=== PATIENT | male | born 1950 | race Caucasian/White ===

== ENCOUNTER 2020-10-27 21:54 | Inpatient (IN) | payer MEDICARE ==
[2020-10-27] MEDS ORDERED: IPRATROPIUM-ALBUTEROL 3 ML NEB INHALATION STA (22:25)
[2020-10-27] MEDS ORDERED: SODIUM CHLORIDE 0.9% 1,000 ML IV STA (22:25)
--- NOTE | 2020-10-27 23:28 | XR ---
EXAMINATION TYPE: XR chest 2V DATE OF EXAM: 10/27/2020 COMPARISON: NONE HISTORY: Short of breath TECHNIQUE: 2 views FINDINGS: There is no heart failure. On the lateral view there is blunting of the costophrenic angles . There are sternal wires. There are chest leads. I see no definite pulmonary consolidation. There is probably some atelectasis left posterior lung base. IMPRESSION: Small posterior pleural effusions. No heart failure.
--- NOTE | 2020-10-28 00:46 | ED ---
SOB HPI - General Chief Complaint: Shortness of Breath Stated Complaint: SOB Time Seen by Provider: 10/27/20 21:56 Source: patient, EMS, RN notes reviewed, old records reviewed Mode of arrival: EMS Limitations: no limitations - History of Present Illness Initial Comments: This is a 70-year-old male presented by EMS for evaluation of shortness of breath. Patient is accepted in transfer patient for heart failure patient has no prior history of heart failure he does have history of coronary artery bypass grafting. Patient states he was doing some walking became significant short of breath is going to his mailbox and back. Continue to call EMS he thinks at some point he had a near syncopal versus a syncopal event currently is much improved without chest pain MD Complaint: shortness of breath, anxiety -: hour(s) Severity: severe Severity scale (1-10): 10 Consistency: constant Improves With: oxygen, rest Worsens With: lying flat, exertion, movement Known History Of: congestive heart failure Associated Symptoms: denies other symptoms Treatments Prior to Arrival: oxygen - Related Data Home Medications Medication Instructions Recorded Confirmed Aspirin EC [Ecotrin Low Dose] 81 mg PO DAILY 10/27/20 10/27/20 Carvedilol [Coreg] 25 mg PO BID 10/27/20 10/27/20 Famotidine [Pepcid] 20 mg PO BID 10/27/20 10/27/20 Insulin Aspart [NovoLOG Flexpen] See Protocol SQ AC-TID PRN 10/27/20 10/27/20 Insulin Glargine,Hum.rec.anlog 70 unit SQ HS 10/27/20 10/27/20 [Lantus Solostar] Lisinopril-Hctz 20-25 mg 1 tab PO HS 10/27/20 10/27/20 [Zestoretic 20-25] Simvastatin [Zocor] 40 mg PO HS 10/27/20 10/27/20 allopurinoL [Zyloprim] 100 mg PO DAILY 10/27/20 10/27/20 amLODIPine [Norvasc] 5 mg PO DAILY 10/27/20 10/27/20 guaiFENesin [Mucinex] 600 mg PO BID PRN 10/27/20 10/27/20 sitaGLIPtin PHOS/metFORMIN HCL 1 tab PO BID 10/27/20 10/27/20 [Janumet 50-1,000 mg Tablet] Allergies Allergy/AdvReac Type Severity Reaction Status Date / Time No Known Allergies Allergy Verified 10/27/20 23:05 Review of Systems ROS Statement: Those systems with pertinent positive or pertinent negative responses have been documented in the HPI. ROS Other: All systems not noted in ROS Statement are negative. Past Medical History Past Medical History: Diabetes Mellitus, Hypertension History of Any Multi-Drug Resistant Organisms: None Reported Past Surgical History: Coronary Bypass/CABG Past Psychological History: No Psychological Hx Reported Smoking Status: Former smoker Past Alcohol Use History: None Reported Past Drug Use History: None Reported General Exam Limitations: no limitations General appearance: alert, in no apparent distress, anxious Head exam: Present: atraumatic, normocephalic, normal inspection Eye exam: Present: normal appearance, PERRL, EOMI. Absent: scleral icterus, conjunctival injection, periorbital swelling ENT exam: Present: normal exam, mucous membranes moist Neck exam: Present: normal inspection. Absent: tenderness, meningismus, lymphadenopathy Respiratory exam: Present: rales, accessory muscle use, decreased breath sounds, prolonged expiratory. Absent: respiratory distress, wheezes, rhonchi, stridor Cardiovascular Exam: Present: regular rate, normal rhythm, normal heart sounds. Absent: systolic murmur, diastolic murmur, rubs, gallop, clicks GI/Abdominal exam: Present: soft, normal bowel sounds. Absent: distended, tenderness, guarding, rebound, rigid Extremities exam: Present: normal inspection, full ROM, normal capillary refill. Absent: tenderness, pedal edema, joint swelling, calf tenderness Back exam: Present: normal inspection Neurological exam: Present: alert, oriented X3, CN II-XII intact Psychiatric exam: Present: normal affect, normal mood Skin exam: Present: warm, dry, intact, normal color. Absent: rash Course Vital Signs 10/27/20 10/28/20 10/28/20 22:03 00:00 00:49 Temperature 98.7 F Pulse Rate 64 62 67 Respiratory 22 18 Rate Blood Pressure 140/75 122/67 O2 Sat by Pulse 100 93 L Oximetry 10/28/20 00:59 Temperature Pulse Rate 70 Respiratory Rate Blood Pressure O2 Sat by Pulse Oximetry - Reevaluation(s) Reevaluation #1: 10/28/20 01:15 Medical record is reviewed Reevaluation #2: 10/28/20 01:15 Transfer paperwork is also been reviewed Reevaluation #3: 10/28/20 01:15 Patient continues to feel improved on 2 L of nasal Reevaluation #4: 10/28/20 01:15 Patient informed of results questions are answered - Consultations Consultation #1: Spoke with Dr. Rodriguez he will admit this patient Medical Decision Making - Medical Decision Making 70 male who is accepted in transfer for CHF with hypoxia. Patient was originally and some breathing support with a nonrebreather on arrival. Was titrated down to 2 L of nasal cannula, breathing is improved will admit for continued diuresis and cardiology evaluation - EKG Data -: EKG Interpreted by Me (EKG shows nsr 65 IL 200 QRS 96 QTc 447) Disposition Clinical Impression: Congestive heart failure, Acute pulmonary edema, Hypoxia Disposition: ADMITTED IP TO THIS HOSP Condition: Serious Is patient prescribed a controlled substance at d/c from ED?: No Referrals: Jalen Haque MD [Primary Care Provider] - 1-2 days
[2020-10-28] MEDS ORDERED: IPRATROPIUM-ALBUTEROL 3 ML NEB INHALATION PRN ×2 (01:11→11:50)
[2020-10-28] MEDS: FUROSEMIDE 10 MG/ML 4 ML VIAL IV SCH ×2 (02:00→18:16)
[2020-10-28 02:48] LABS: Glucose,Whole Blood 244 mg/dL (75-99)
[2020-10-28] MEDS: INSULIN ASPART (NovoLOG) 100 UNIT/ML VIAL SQ SCH ×5 (04:03→20:57)
[2020-10-28 06:03] LABS: HCT 40.9 % (39.0-53.0); HGB 13.1 gm/dL (13.0-17.5); MCH 31.4 pg (25.0-35.0); MCHC 32.1 g/dL (31.0-37.0); MCV 97.7 fL (80.0-100.0); Mean Platelet Volume 8.9; Platelet Count 234 k/uL (150-450); RBC 4.19 m/uL (4.30-5.90); RDW 14.1 % (11.5-15.5); WBC 9.2 k/uL (3.8-10.6)
[2020-10-28 06:20] LABS: Glucose,Whole Blood 224 mg/dL (75-99)
[2020-10-28 06:25] LABS: Calcium 8.5 mg/dL (8.4-10.2); Potassium 4.7 mmol/L (3.5-5.1)
[2020-10-28] MEDS ORDERED: guaiFENesin 600 MG TABLET.ER PO PRN (07:02)
[2020-10-28] MEDS: metFORMIN 500 MG TAB PO SCH ×2 (07:15→18:20)
[2020-10-28] MEDS: carvediloL 12.5 MG TAB PO SCH ×2 (07:15→18:16)
[2020-10-28] MEDS ORDERED: FAMOTIDINE 20 MG TAB PO SCH (09:00)
[2020-10-28] MEDS ORDERED: HEPARIN SODIUM 1,000 UN/ML (10ML VL) IV ONE (09:08)
--- NOTE | 2020-10-28 09:49 | HP ---
HISTORY AND PHYSICAL 70-year-old white male, shortness of breath, ( ) for heart failure as he has had no recent history of heart failure, but he does have a history of bypass. He became significantly short of breath. He has positive troponins. Cardiology is consulted. He is short of breath laying flatter or with any exertion. HOME MEDICATIONS: Include aspirin, Coreg, Pepcid, NovoLog, Lantus, lisinopril, hydrochlorothiazide, Zocor, zyloprim, Norvasc, Mucinex and Janumet. ALLERGIES: None. REVIEW OF SYSTEMS: 14 point review of systems negative. PAST MEDICAL HISTORY: Hypertension, diabetes mellitus, history of bypass, former smoker. No alcohol. No drugs. PHYSICAL EXAMINATION: Blood pressure 122-140/60 to 70s, temp 98.7 respiratory 64-62, O2 is 92-100. RESPIRATORY: Clear. CARDIOVASCULAR: S1, S2. GI: Soft. PSYCH: Fair mood and affect. NEUROLOGIC: Alert and oriented x3. Looks his stated age. Pupils equal, round, reactive. ASSESSMENT: 1. Congestive heart failure. 2. Hypoxemia, non-rebreather on arrival. 3. Elevated troponin. Will get cardiology and Pulmonary involved for acute pulmonary edema, CHF, hypoxemia and elevated troponins, possible IN. Please see further orders. MMODL / IJN: [id number] /
[2020-10-28] MEDS: amLODIPine 5 MG TAB PO SCH (09:52)
[2020-10-28] MEDS: ASPIRIN 81 MG PO SCH (09:52)
[2020-10-28] MEDS: allopurinoL 100 MG TAB PO SCH (09:52)
[2020-10-28] MEDS: LINAGLIPTIN 5 MG TABLET PO SCH (09:52)
[2020-10-28 10:10] LABS: Prothrombin Time 10.6 sec (9.0-12.0)
--- NOTE | 2020-10-28 10:47 | ECHOF ---
Referral Reason:Heart Failure MEASUREMENTS -------- HEIGHT: 177.8 cm WEIGHT: 124.7 kg BP: 163/73 RVIDd: 4.3 cm (< 3.3) IVSd: 1.2 cm (0.6 - 1.1) LVIDd: 3.8 cm (3.9 - 5.3) LVPWd: 1.4 cm (0.6 - 1.1) IVSs: 1.3 cm LVIDs: 3.3 cm LVPWs: 1.0 cm LAESV Index (A-L): 26.15 ml/m Ao Diam: 3.6 cm (2.0 - 3.7) AV Cusp: 1.8 cm (1.5 - 2.6) LA Diam: 3.9 cm (2.7 - 3.8) MV E Drew: 1.09 m/s MV DecT: 219 ms MV A Drew: 0.62 m/s MV E/A Ratio: 1.75 RAP: 5.00 mmHg RVSP: 36.10 mmHg FINDINGS -------- This was a technically difficult study with suboptimal views. The left ventricular size is normal. There is mild concentric left ventricular hypertrophy. Overa ll left ventricular systolic function is moderate-severely impaired with, an EF between 30 - 35 %. Septal wall motion is delayed and consistent with prior cardiac surgery. Global hypokinesis Infer ior Hypokinesis The right ventricle is normal in size. Normal LA size by volume 22+/-6 ml/m2. The right atrium was not well visualized. 5.0mg of Lumason was utilized for enhancement of images Interatrial and interventricular septum intact. The aortic valve was not well visualized. There is no evidence of aortic regurgitation. There is no evidence of aortic stenosis. Mild mitral regurgitation is present. Yepc-ya-[id number] tricuspid regurgitation present. There is mild pulmonary hypertension. The right ventricular systolic pressure, as measured by Doppler, is 36.10mmHg. The pulmonic valve was not well visualized. The aortic root size is normal. IVC Not well visulized. There is no pericardial effusion. CONCLUSIONS -------- 1. The left ventricular size is normal. 2. There is mild concentric left ventricular hypertrophy. 3. Overall left ventricular systolic function is moderate-severely impaired with, an EF between 30 - 35 %. 4. Inferior Hypokinesis 5. Mild mitral regurgitation is present. 6. Ckmk-cp-dfvzytfw tricuspid regurgitation present. 7. There is mild pulmonary hypertension. 8. The right ventricular systolic pressure, as measured by Doppler, is 36.10mmHg. ROD PILER: Tiarra Nicholas RDCS
[2020-10-28] MEDS: HEPARIN SOD,PORK IN 0.45% NACL 25,000 UNIT in 0.45% NACL 1 250ML.BAG IV SCH (12:00)
[2020-10-28 12:02] LABS: Glucose,Whole Blood 236 mg/dL (75-99)
[2020-10-28] MEDS ORDERED: NITROGLYCERIN SL TABS 0.4 MG TAB SUBLINGUAL PRN (12:35)
[2020-10-28] MEDS ORDERED: ALPRAZolam 0.25 MG TAB PO PRN (12:35)
[2020-10-28] MEDS ORDERED: ALPRAZolam 0.5 MG TAB PO PRN (12:35)
--- NOTE | 2020-10-28 12:45 | P.CRDCN ---
History of Present Illness History of present illness: HISTORY OF PRESENTING ILLNESS This is a pleasant 70-year-old male past medical history significant for coronary artery disease status post CABG 5 in 2004 at [facility] in [place], type 2 diabetes, hypertension, dyslipidemia, obesity. He used to follow in the office with Dr. 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 We have been asked to see in consultation for congestive heart failure and elevated troponins. Yesterday patient was walking to his mailbox and started to feel short of breath, as he was walking back to his house shortness of breath worsened. He states that he did have a glass of iced tea, shortness of breath progressively worsened and he called EMS. He states that he did sit down in his recliner and felt that he may have passed out he does not remember EMS arriving her being brought to [facility]. At [place] patient's initial troponin was negative, his EKG revealed sinus rhythm with PACs, T-wave inversions in leads 1 aVL. His sodium was 137, potassium 4.6, BUN was 25, serum creatinine was 2.0, glucose 276 radiology read of his chest x- ray revealed pulmonary vascular congestion and bilateral lower lobe atelectasis versus infiltrate. Patient was transferred to [facility]. Patient denies any chest pain, palpitations, lower extremity edema, weakness or lightheadedness. He denies any nausea, diaphoresis. He denies symptoms of orthopnea or PND. He is a nonsmoker/never smoker. He denies alcohol use. Patient states he has not followed up with a matting press tender since 2017. DIAGNOSTICS EKG reveals sinus rhythm, heart 65, T wave inversions in leads I and aVL, no prior EKG to compare Most recent echocardiogram 09/2016 revealed an EF of 50%, aortic sclerosis, mild pulmonary hypertension History of stress test in 09/2016 showed distal anterior wall ischemia. It was recommended to undergo heart catheterization however this procedure was not completed for unknown reasons at this time. Telemetry tracings indicate sinus mechanism HR 50-60s Chest xray small posterior pleural effusions. Laboratory reviewed, Troponin trend (0.03 at [facility])--> 0.13, 0.16, WBC 9.2, hemoglobin 13.1, platelets 234, sodium 140, potassium 4.7, BUN 30, serum creatinine 1.6 REVIEW OF SYSTEMS At the time of my exam: CONSTITUTIONAL: Denies fever or chills. CARDIOVASCULAR: +shortness of breath, Denies chest pain, shortness of breath, orthopnea, PND or palpitations. RESPIRATORY: Denies cough. GASTROINTESTINAL: Denies abdominal pain, diarrhea, constipation, nausea or vomiting. MUSCULOSKELETAL: Denies myalgias. NEUROLOGIC: Denies numbness, tingling, headacbe or weakness. ENDOCRINE: Denies fatigue, weight change, polydipsia or polyurina. GENITOURINARY: Denies burning, hematuria or urgency with micturation. HEMATOLOGIC: Denies history of anemia or bleeding. PHYSICAL EXAMINATION Blood pressure 163/73, heart rate 67, afebrile, maintaining oxygen saturations 95% 2 L nasal cannula CONSTITUTIONAL: No apparent distress. HEENT: Head is normocephalic. Pupils are equal, round. Sclerae anicteric. Mucous membranes of the mouth are moist. No JVD. No carotid bruit. CHEST EXAMINATION: Lungs are diminished, mild crackles in the bases. No chest wall tenderness is noted on palpation or with deep breathing. HEART EXAMINATION: Regular rate and rhythm. S1, S2 heard. Systolic murmur noted ABDOMEN: Soft, nontender. Positive bowel sounds. EXTREMITIES: 2+ peripheral pulses, no lower extremity edema and no calf tenderness. SKIN: intact NEUROLOGIC EXAMINATION: Patient is awake, alert and oriented x3. ASSESSMENT Shortness of breath Elevated troponin concerning for ischemia Coronary artery disease status post CABG 5 in 2004 unknown details at this time Type 2 diabetes Hypertension Dyslipidemia Morbid Obesity Cardiomyopathy- most likely ischemic PLAN -Obtain 2D echocardiogram and doppler study to assess cardiac structure and function. - Echocardiogram revealed EF of 30-35%, inferior hypokinesis, mild mitral regurgitation, mild to moderate tricuspid regurgitation, mild pulmonary hypertension. -Lipid Panel -Will continue IV Lasix BID most likely transition to PO tomorrow -Start lisinopril 5mg BID -Continue patient's cardiac medications amlodipine 5 mg daily, aspirin 1 mg daily, atorvastatin 40 mg nightly, carvedilol 25 mg twice a day -Plan for cardiac catheterization with Dr. Noe tomorrow. -I have discussed the risks, benefits and alternative therapies for the above- mentioned procedure and for both sedation/analgesia as well as necessary blood product administration, if indicated, as they pertain to this patient. The patient has indicated understanding and acceptance of the risks and procedures discussed. Questions have been answered appropriately and he is agreeable to move forward with the above-stated procedure. Further recommendations based on clinical course Nurse Practitioner note has been reviewed, I agree with a documented findings and plan of care. Patient was seen and examined. Past Medical History Past Medical History: Diabetes Mellitus, Hypertension History of Any Multi-Drug Resistant Organisms: None Reported Past Surgical History: Coronary Bypass/CABG Additional Past Surgical History / Comment(s): Cataract surgery Additional Past Anesthesia/Blood Transfusion Reaction / Comment(s): Pt states "years ago I had a high tolerance for anesthesia" Past Psychological History: No Psychological Hx Reported Smoking Status: Former smoker Past Alcohol Use History: None Reported Past Drug Use History: None Reported - Past Family History Mother Family Medical History: CVA/TIA Additional Family Medical History / Comment(s): from stroke at age 56. Father Family Medical History: Cancer Additional Family Medical History / Comment(s): from cancer at age 97. Medications and Allergies Home Medications Medication Instructions Recorded Confirmed Type Aspirin EC [Ecotrin Low Dose] 81 mg PO DAILY 10/27/20 10/27/20 History Carvedilol [Coreg] 25 mg PO BID 10/27/20 10/27/20 History Famotidine [Pepcid] 20 mg PO BID 10/27/20 10/27/20 History Insulin Aspart [NovoLOG Flexpen] See Protocol SQ AC-TID PRN 10/27/20 10/27/20 History Insulin Glargine,Hum.rec.anlog 70 unit SQ HS 10/27/20 10/27/20 History [Lantus Solostar] Lisinopril-Hctz 20-25 mg 1 tab PO HS 10/27/20 10/27/20 History [Zestoretic 20-25] Simvastatin [Zocor] 40 mg PO HS 10/27/20 10/27/20 History allopurinoL [Zyloprim] 100 mg PO DAILY 10/27/20 10/27/20 History amLODIPine [Norvasc] 5 mg PO DAILY 10/27/20 10/27/20 History guaiFENesin [Mucinex] 600 mg PO BID PRN 10/27/20 10/27/20 History sitaGLIPtin PHOS/metFORMIN HCL 1 tab PO BID 10/27/20 10/27/20 History [Janumet 50-1,000 mg Tablet] Allergies Allergy/AdvReac Type Severity Reaction Status Date / Time No Known Allergies Allergy Verified 10/27/20 23:05 Physical Exam Vitals: Vital Signs Temp Pulse Pulse Resp BP BP Pulse Ox 10/28/20 04:00 98.3 F 67 18 163/73 95 10/28/20 01:37 98.1 F 67 18 123/69 94 L 10/28/20 00:59 70 10/28/20 00:49 67 10/28/20 00:00 62 18 122/67 93 L 10/27/20 22:03 98.7 F 64 22 140/75 100 Intake and Output 10/27/20 10/28/20 10/28/20 22:59 06:59 14:59 Intake Total 10 Output Total 1900 Balance -1890 Intake: IV 10 Invasive Line 1 10 Output: Urine 1900 Other: Voiding Method Indwelling Catheter Weight 124.738 kg 124.738 kg Results 10/28/20 05:14 10/28/20 05:14 Cardiac Enzymes 10/28/20 10/28/20 Range/Units 01:48 05:14 Troponin I 0.137 H* 0.160 H* (0.000-0.034) ng/mL CBC 10/28/20 Range/Units 05:14 WBC 9.2 (3.8-10.6) k/uL RBC 4.19 L (4.30-5.90) m/uL Hgb 13.1 (13.0-17.5) gm/dL Hct 40.9 (39.0-53.0) % Plt Count 234 (150-450) k/uL Comprehensive Metabolic Panel 10/28/20 Range/Units 05:14 Sodium 140 (137-145) mmol/L Potassium 4.7 (3.5-5.1) mmol/L Chloride 103 (98-107) mmol/L Carbon Dioxide 26 (22-30) mmol/L BUN 30 H (9-20) mg/dL Creatinine 1.66 H (0.66-1.25) mg/dL Glucose 244 H (74-99) mg/dL Calcium 8.5 (8.4-10.2) mg/dL Current Medications Generic Name Dose Route Start Last Admin Trade Name Freq PRN Reason Stop Dose Admin Albuterol/Ipratropium 3 ml 07/22/21 01:11 Ipratropium-Albuterol 3 Ml Neb INHALATION RT-QID PRN Shortness Of Breath Or Wheezing Allopurinol 100 mg 10/28/20 09:00 Allopurinol 100 Mg Tab PO DAILY [facility] Amlodipine Besylate 5 mg 10/28/20 09:00 Amlodipine 5 Mg Tab PO DAILY [facility] Aspirin 81 mg 10/28/20 09:00 Aspirin 81 Mg PO DAILY [facility] Atorvastatin Calcium 40 mg 10/28/20 21:00 Atorvastatin 40 Mg Tab PO HS [facility] Carvedilol 25 mg 10/28/20 07:30 10/28/20 07:15 Carvedilol 12.5 Mg Tab PO 25 mg AC-BID VIOLET Administration Famotidine 20 mg 10/28/20 09:00 Famotidine 20 Mg Tab PO BID [facility] Furosemide 40 mg 10/28/20 01:15 10/28/20 02:00 Furosemide 10 Mg/Ml 4 Ml Vial IV 40 mg Q12H VIOLET Administration Guaifenesin 600 mg 10/28/20 07:02 Guaifenesin 600 Mg Tablet.Er PO BID PRN Congestion Heparin Sodium (Porcine) 0 unit 10/28/20 09:08 Heparin Sodium 1,000 Un/Ml (10ml Vl) IV PER PROTOCOL PRN Low PTT Protocol Heparin Sodium/Sodium Chloride 250 mls @ 9.979 mls/hr 10/28/20 09:15 25,000 unit/ Sodium Chloride IV .Q24H VIOLET Protocol 8 UNITS/KG/HR Insulin Aspart 0 unit 10/28/20 03:15 10/28/20 06:30 Insulin Aspart (Novolog) 100 Unit/Ml Vial SQ 5 unit ACHS VIOLET Administration Protocol Insulin Detemir 70 unit 10/28/20 21:00 Insulin Detemir (Levemir) 100 Unit/Ml Syr SQ HS [facility] Linagliptin 5 mg 10/28/20 09:00 Linagliptin 5 Mg Tablet PO DAILY [facility] Lisinopril 5 mg 10/28/20 21:00 Lisinopril 5 Mg Tab PO BID [facility] Metformin HCl 1,000 mg 10/28/20 07:30 10/28/20 07:15 Metformin 500 Mg Tab PO 1,000 mg AC-BID VIOLET Administration Intake and Output 10/27/20 10/28/20 10/28/20 22:59 06:59 14:59 Intake Total 10 Output Total 1900 Balance -1889 Intake: IV 10 Invasive Line 1 10 Output: Urine 1899 Other: Voiding Method Indwelling Catheter Weight 124.738 kg 124.738 kg 10/28/20 05:14 10/28/20 05:14
--- NOTE | 2020-10-28 13:55 | P.CNPUL ---
History of Present Illness Consult date: 10/28/20 Requesting physician: Elmer Rodriguez Reason for consult: dyspnea, abnormal CXR/CT Chief complaint: shortness of breath History of present illness: this is a very pleasant 70-year-old gentleman who resides in [facility].appendectomy has a history of coronary artery disease with previous c oronary artery bypass grafting 4 in 2004, diabetes mellitus, hypertension, hyperlipidemia, gout. He is a former smoker of 27 years at 2 packs per day. He is on home oxygen at 2 L/m per nasal cannula for chronic obstructive pulmonary disease.he originally presented to [facility] for shortness of breath and dyspnea on exertion that started just 2 days prior. He was found to be in congestive heart failure and transferred here for further treatment. Chest x-ray does reveal evidence of some fluid volume overload with small bilateral pleural effusions. Some atelectatic changes and left posterior lung base. Echocardiogram does reveal moderate to severely impaired left ventricular sys tolic function with an ejection fraction 30-35%. Global hypokinesia.Troponin 0.160. White count 9.2. Hemoglobin 13.1. Sodium 140. Potassium 4.7. Creatinine 1.66. he's been initiated on IV diuretics. Heparin drip. Review of Systems REVIEW OF SYSTEMS: CONSTITUTIONAL: Denies any recent significant weight loss or weight gain. EYES: Denies change in vision. EARS, NOSE, MOUTH, THROAT: Denies headaches, denies sore throat. CARDIOVASCULAR: Denies chest pain, palpitations or syncopal episodes. RESPIRATORY: Positive for shortness of breath, no cough, congestion or hemo ptysis. GASTROINTESTINAL: Denies change in appetite, denies abdominal pain GENITOURINARY: Denies hematuria, denies infections. MUSKULOSKELETAL: Denies pain, denies swelling. INTEGUMENTARY: Denies rash, denies eczema. NEUROLOGICAL: Denies recent memory loss, no recent seizure activity. PSYCHIATRIC: Denies anxiety, denies depression. HEMATOLOGIC/LYMPHATIC: Denies anemia, denies enlarged lymph nodes. Past Medical History Past Medical History: Diabetes Mellitus, Hypertension History of Any Multi-Drug Resistant Organisms: None Reported Past Surgical History: Coronary Bypass/CABG Additional Past Surgical History / Comment(s): Cataract surgery Additional Past Anesthesia/Blood Transfusion Reaction / Comment(s): Pt states "years ago I had a high tolerance for anesthesia" Past Psychological History: No Psychological Hx Reported Smoking Status: Former smoker Past Alcohol Use History: None Reported Past Drug Use History: None Reported - Past Family History Mother Family Medical History: CVA/TIA Additional Family Medical History / Comment(s): from stroke at age 56. Father Family Medical History: Cancer Additional Family Medical History / Comment(s): from cancer at age 97. Medications and Allergies Home Medications Medication Instructions Recorded Confirmed Type Aspirin EC [Ecotrin Low Dose] 81 mg PO DAILY 10/27/20 10/27/20 History Carvedilol [Coreg] 25 mg PO BID 10/27/20 10/27/20 History Famotidine [Pepcid] 20 mg PO BID 10/27/20 10/27/20 History Insulin Aspart [NovoLOG Flexpen] See Protocol SQ AC-TID PRN 10/27/20 10/27/20 History Insulin Glargine,Hum.rec.anlog 70 unit SQ HS 10/27/20 10/27/20 History [Lantus Solostar] Lisinopril-Hctz 20-25 mg 1 tab PO HS 10/27/20 10/27/20 History [Zestoretic 20-25] Simvastatin [Zocor] 40 mg PO HS 10/27/20 10/27/20 History allopurinoL [Zyloprim] 100 mg PO DAILY 10/27/20 10/27/20 History amLODIPine [Norvasc] 5 mg PO DAILY 10/27/20 10/27/20 History guaiFENesin [Mucinex] 600 mg PO BID PRN 10/27/20 10/27/20 History sitaGLIPtin PHOS/metFORMIN HCL 1 tab PO BID 10/27/20 10/27/20 History [Janumet 50-1,000 mg Tablet] Allergies Allergy/AdvReac Type Severity Reaction Status Date / Time No Known Allergies Allergy Verified 10/27/20 23:05 Physical Exam Vitals: Vital Signs Temp Pulse Pulse Resp BP BP Pulse Ox 10/28/20 04:00 98.3 F 67 18 163/73 95 10/28/20 01:37 98.1 F 67 18 123/69 94 L 10/28/20 00:59 70 10/28/20 00:49 67 10/28/20 00:00 62 18 122/67 93 L 10/27/20 22:03 98.7 F 64 22 140/75 100 Intake and Output 10/27/20 10/28/20 10/28/20 22:59 06:59 14:59 Intake Total 10 Output Total 1900 450 Balance -1890 -450 Intake: IV 10 Invasive Line 1 10 Output: Urine 1900 450 Other: Voiding Method Indwelling Catheter Weight 124.738 kg 124.738 kg GENERAL EXAM: Alert, pleasant 70-year-old gentleman, on 2 L nasal cannula, comfortable in no apparent distress. HEAD: Normocephalic. EYES: Normal reaction of pupils, equal size. NOSE: Clear with pink turbinates. THROAT: No erythema or exudates. NECK: No masses, no JVD. CHEST: No chest wall deformity. LUNGS: Equal air entry with crackles in the posterior bases CVS: S1 and S2 normal with no audible murmur, regular rhythm. ABDOMEN: No hepatosplenomegaly, normal bowel sounds, no guarding or rigidity. SPINE: No scoliosis or deformity SKIN: No rashes CENTRAL NERVOUS SYSTEM: No focal deficits, tone is normal in all 4 extremities. EXTREMITIES: There is no peripheral edema. No clubbing, no cyanosis. Peripheral pulses are intact. Results - Laboratory Findings CBC and BMP: 10/28/20 05:14 10/28/20 05:14 PT/INR, D-dimer PT 10.6 sec (9.0-12.0) 10/28/20 09:35 INR 1.0 (<1.2) 10/28/20 09:35 Abnormal lab findings: Abnormal Labs 10/28/20 10/28/20 10/28/20 01:48 02:45 05:14 RBC BUN Creatinine Glucose POC Glucose (mg/dL) 244 H Troponin I 0.137 H* 0.160 H* 10/28/20 10/28/20 10/28/20 05:14 05:14 06:18 RBC 4.19 L BUN 30 H Creatinine 1.66 H Glucose 244 H POC Glucose (mg/dL) 224 H Troponin I 10/28/20 11:51 RBC BUN Creatinine Glucose POC Glucose (mg/dL) 236 H Troponin I - Diagnostic Findings Chest x-ray: image reviewed Assessment and Plan Assessment: 1 Acute exacerbation of systolic congestive heart failure, moderate to severely impaired left ventricular systolic function with ejection fraction 30-35% 2 History of coronary artery disease with previous coronary artery bypass grafting 4 in 2004 3 History of chronic tobacco dependence of 27 years at 2 packs per day 4 Chronic obstructive pulmonary disease 5 Diabetes mellitus 6 Hypertension 7 Hyperlipidemia 8 History of gout 9 Gastroesophageal reflux disease Plan: The patient was seen and evaluated by Dr. Jaquez Chest x-ray and labs reviewed Add DuoNeb inhalations Plan is for cardiac catheterization in a.m. We will continue to follow and make further recommendations based on his clinical status I, the cosigning physician, performed a history & physical examination of the patient. Lungs sounds with crackles in the posterior bases. Maintaining good O2 saturations in the 90s on 2 L/m per nasal cannula. I discussed the assessment and plan of care with my nurse practitioner, Liza Foley. I attest to the above consultation as dictated by her. Time with Patient: Greater than 30
[2020-10-28 14:52] VITALS: BMI 39.4
[2020-10-28] MEDS: IPRATROPIUM-ALBUTEROL 3 ML NEB INHALATION SCH ×3 (15:13→21:26)
[2020-10-28 17:05] LABS: Glucose,Whole Blood 243 mg/dL (75-99)
[2020-10-28] MEDS: HEPARIN SODIUM 1,000 UN/ML (10ML VL) IV PRN (20:01)
[2020-10-28 20:08] LABS: Glucose,Whole Blood 227 mg/dL (75-99)
[2020-10-28] MEDS: INSULIN DETEMIR (LEVEMIR) 100 UNIT/ML SYR SQ SCH (20:57)
[2020-10-28] MEDS: ATORVASTATIN 40 MG TAB PO SCH (20:57)
[2020-10-28] MEDS: lisinopriL 5 MG TAB PO SCH (20:57)
[2020-10-28] MEDS ORDERED: LISINOPRIL-HCTZ 20-25 MG 1 EACH TAB PO SCH (21:00)
[2020-10-28] MEDS ORDERED: ATORVASTATIN 20 MG TAB PO SCH (21:00)
[2020-10-29] MEDS ORDERED: SODIUM CHLORIDE 0.9% 1,000 ML in EMPTY BAG 1 BAG IV ONE
[2020-10-29] MEDS: FUROSEMIDE 10 MG/ML 4 ML VIAL IV SCH ×2 (00:27→12:15)
[2020-10-29 01:29] LABS: Chol/HDL Ratio 3.81; LDL Cholesterol,Calculated 40.4 mg/dL (0.0-131.0); VLDL Calculation 32.6 mg/dL (5.00-40.00)
[2020-10-29 03:10] LABS: Partial Thromboplastin Time 35.1 sec (22.0-30.0); Prothrombin Time 10.7 sec (9.0-12.0)
[2020-10-29 03:35] LABS: Basophils % (A) 0 %; Eosinophils # (A) 0.1 k/uL (0-0.7); Eosinophils % (A) 1 %; HCT 41.3 % (39.0-53.0); HGB 13.1 gm/dL (13.0-17.5); Lymphocytes # (A) 1.5 k/uL (1.0-4.8); Lymphocytes % (A) 19 %; MCH 30.8 pg (25.0-35.0); MCHC 31.7 g/dL (31.0-37.0); MCV 97.4 fL (80.0-100.0); Monocytes # (A) 0.3 k/uL (0-1.0); Monocytes % (A) 4 %; Neutrophils # (A) 6.1 k/uL (1.3-7.7); Neutrophils % (A) 75 %; Platelet Count 240 k/uL (150-450); RBC 4.23 m/uL (4.30-5.90); RDW 14.1 % (11.5-15.5); WBC 8.2 k/uL (3.8-10.6)
[2020-10-29] MEDS: HEPARIN SODIUM 1,000 UN/ML (10ML VL) IV PRN (03:41)
[2020-10-29 03:43] LABS: Calcium 8.9 mg/dL (8.4-10.2); Potassium 4.1 mmol/L (3.5-5.1)
[2020-10-29 05:58] LABS: Glucose,Whole Blood 180 mg/dL (75-99)
[2020-10-29] MEDS: LINAGLIPTIN 5 MG TABLET PO SCH (06:40)
[2020-10-29] MEDS: metFORMIN 500 MG TAB PO SCH (06:40)
[2020-10-29] MEDS: INSULIN ASPART (NovoLOG) 100 UNIT/ML VIAL SQ SCH ×6 (06:40→20:27)
[2020-10-29] MEDS: FAMOTIDINE 20 MG TAB PO SCH (06:44)
[2020-10-29] MEDS: amLODIPine 5 MG TAB PO SCH (06:44)
[2020-10-29] MEDS: lisinopriL 5 MG TAB PO SCH ×2 (06:44→20:27)
[2020-10-29] MEDS: carvediloL 12.5 MG TAB PO SCH ×2 (06:44→17:41)
[2020-10-29] MEDS: ASPIRIN 81 MG PO SCH (06:44)
[2020-10-29] MEDS: allopurinoL 100 MG TAB PO SCH (06:44)
[2020-10-29] MEDS ORDERED: HEPARIN SODIUM,PORCINE 2,500 UNIT in SODIUM CHLORIDE 0.9% 250 ML IRRIGATION PRN (07:00)
[2020-10-29] MEDS ORDERED: HEPARIN SODIUM,PORCINE 10,000 UNIT in SODIUM CHLORIDE 0.9% 1,000 ML IRRIGATION PRN (07:00)
[2020-10-29] MEDS ORDERED: IV FLUID CONTINUATION 1,000 ML IV ONE (07:21)
[2020-10-29] MEDS ORDERED: LIDOCAINE 1% INJ 10MG/ML (20 ML MDV) ONE (07:23)
[2020-10-29] MEDS ORDERED: MIDAZOLAM 2 MG/2 ML VIAL IVP ONE (07:48)
[2020-10-29] MEDS ORDERED: LIDOCAINE 1% INJ 10MG/ML (20 ML MDV) SQ ONE (07:51)
[2020-10-29] MEDS: IPRATROPIUM-ALBUTEROL 3 ML NEB INHALATION SCH ×4 (08:15→20:00)
[2020-10-29] MEDS ORDERED: IOPAMIDOL-370 125ML BTL INJ ONE (08:26)
[2020-10-29] MEDS ORDERED: RX INFO: IV CONTRAST WAS GIVEN 1 EACH MISC MISCELLANE PRN (08:33)
[2020-10-29] MEDS ORDERED: SODIUM CHLORIDE 0.9% 1,000 ML IV SCH (08:45)
--- NOTE | 2020-10-29 09:14 | CC ---
CARDIAC CATHETERIZATION REPORT DATE OF SERVICE: October 29, 2020. PERFORMING PHYSICIAN: Serge Noe MD. PROCEDURE PERFORMED: 1. Selective left and right coronary angiogram. 2. VENEGAS to LAD angiogram. 3. SVG to ramus intermedius angiogram. 4. SVG to RCA angiogram. 5. Selective right common femoral artery angiogram. INDICATION: This is a 71-year-old gentleman with coronary artery disease and prior coronary artery bypass grafting was performed at [facility] several years ago with unknown details who presented to the hospital with shortness of breath and was diagnosed with heart failure. His EF came into be between 30% to 35%. Because of that, a heart catheterization was advised to rule out severe underlying coronary artery disease. APPROACH: Right common femoral artery. COMPLICATION: None. LEVEL OF SEDATION: Moderate with sedation length of 38 minutes. PROCEDURE DESCRIPTION: After obtaining an informed consent, the patient was brought to the cardiac pipelines laborer. The right common femoral artery was cannulated using micropuncture technique under ultrasound guidance, the micropuncture wire passed easily. Then I placed a 6-Setswana sheath in the right common femoral artery. After that I did selective left and right coronary angiogram using JL4 and JR4 catheters. The VENEGAS to LAD angiogram was performed using an IM catheter. SVG to ramus intermedius was performed using JR4 catheter. The SVG to RCA was performed using multipurpose catheter. The procedure was completed without any complication. SELECTIVE CORONARY ANGIOGRAM: 1. The left main appeared to have mild disease only. It bifurcates into LCX and LAD and ramus intermedius. 2. The LCX appeared to be calcified with mild to moderate diffuse disease. 3. The ramus intermedius is grafted with competitive flow from the graft. 4. The LAD is 100% occluded in the midportion. 5. The RCA is 100% occluded in the midportion. CORONARY BYPASS ANGIOGRAM: 1. The VENEGAS to LAD is patent. 2. The SVG to ramus intermedius is patent. 3. The SVG to RCA is patent. CONCLUSION: 1. Severe triple-vessel coronary artery disease. 2. Patent VENEGAS to LAD. 3. Patent SVG to ramus intermedius. 4. Patent SVG to RCA. POSTPROCEDURE MANAGEMENT: 1. I recommended aggressive cholesterol control and maximize medical treatment for the cardiomyopathy. 2. Follow up with the patient. MMODL / IJN: [id number] /
--- NOTE | 2020-10-29 09:30 | XR ---
EXAMINATION TYPE: XR chest 1V portable DATE OF EXAM: 10/29/2020 COMPARISON: 10/27/2020 INDICATION: CHF TECHNIQUE: Single frontal view of the chest is obtained. FINDINGS: The heart size is normal. The pulmonary vasculature is normal. The lungs are clear. Sternotomy wires are in the midline. IMPRESSION: 1. No acute pulmonary process.
[2020-10-29 09:35] LABS: Glucose,Whole Blood 199 mg/dL (75-99)
[2020-10-29] MEDS: HEPARIN SOD,PORK IN 0.45% NACL 25,000 UNIT in 0.45% NACL 1 250ML.BAG IV SCH (10:31)
[2020-10-29 11:57] LABS: Glucose,Whole Blood 256 mg/dL (75-99)
--- NOTE | 2020-10-29 14:16 | P.PN ---
Subjective Progress Note Date: 10/29/20 Principal diagnosis: Dyspnea On 10/29/2020 patient seen in follow-up on selective care unit. He is resting comfortably in bed, in no acute distress, he is currently on 2 L oxygen pulse ox is 92-96%, no worsening dyspnea, she had cardiac catheterization today, and was found to have no evidence of significant coronary artery disease. His EF was 30-35%. Aggressive medical management was recommended per cardiology for history of ischemic cardiomyopathy. Remains on oral diuretics, his follow-up chest x-ray today shows no acute pulmonary process. No complaints of chest pain overnight. Today's labs have been noted. Objective - Vital Signs Vital signs: Vital Signs Temp 97.8 F 10/29/20 09:10 Pulse 66 10/29/20 12:30 Resp 18 10/29/20 11:55 BP 108/69 10/29/20 11:55 Pulse Ox 92 L 10/29/20 11:55 Intake & Output 10/28/20 10/29/20 10/29/20 18:59 06:59 18:59 Intake Total 800 185.421 50 Output Total 850 2600 650 Balance -50 -2414.579 -600 Weight 124.738 kg 121.7 kg Intake: IV 20 50 Invasive Line 1 20 Intake, IV Titration 185.421 Amount Heparin Sod,Pork in 0.45% 185.421 NaCl 25,000 unit In 0.45 % NaCl 1 250ml.bag @ 8 UNITS/KG/HR 9.979 mls/hr IV .Q24H [facility] Rx#: [id number] Oral 780 0 Output: Urine 850 2600 650 Other: Voiding Method Indwelling Catheter Indwelling Catheter Indwelling Catheter - Exam GENERAL EXAM: Alert, very pleasant, 70-year-old white male, on 2 L of oxygen and the pulse ox of 92-96% comfortable in no apparent distress. HEAD: Normocephalic/atraumatic. EYES: Normal reaction of pupils, equal size. Conjunctiva pink, sclera white. NOSE: Clear with pink turbinates. THROAT: No erythema or exudates. NECK: No masses, no JVD, no thyroid enlargement, no adenopathy. CHEST: No chest wall deformity. Symmetrical expansion. LUNGS: Equal air entry with no crackles, wheeze, rhonchi or dullness. CVS: Regular rate and rhythm, normal S1 and S2, no gallops, no murmurs, no rubs ABDOMEN: Soft, nontender. No hepatosplenomegaly, normal bowel sounds, no guarding or rigidity. EXTREMITIES: No clubbing, no edema, no cyanosis, 2+ pulses and upper and lower extremities. MUSCULOSKELETAL: Muscle strength and tone normal. SPINE: No scoliosis or deformity SKIN: No rashes CENTRAL NERVOUS SYSTEM: Alert and oriented -3. No focal deficits, tone is normal in all 4 extremities. PSYCHIATRIC: Alert and oriented -3. Appropriate affect. Intact judgment and insight. - Labs CBC & Chem 7: 10/29/20 02:42 10/29/20 02:42 Labs: Abnormal Lab Results - Last 24 Hours (Table) 10/28/20 10/28/20 10/28/20 Range/Units 09:35 16:57 20:05 RBC (4.30-5.90) m/uL APTT (22.0-30.0) sec BUN (9-20) mg/dL Creatinine (0.66-1.25) mg/dL Glucose (74-99) mg/dL POC Glucose (mg/dL) 243 H 227 H (75-99) mg/dL Triglycerides 163.0 H (0.0-149.0) mg/dL HDL Cholesterol 26.0 L (40.0-60.0) mg/dL 10/29/20 10/29/20 10/29/20 Range/Units 02:42 02:42 02:42 RBC 4.23 L (4.30-5.90) m/uL APTT 35.1 H (22.0-30.0) sec BUN 35 H (9-20) mg/dL Creatinine 1.61 H (0.66-1.25) mg/dL Glucose 173 H (74-99) mg/dL POC Glucose (mg/dL) (75-99) mg/dL Triglycerides (0.0-149.0) mg/dL HDL Cholesterol (40.0-60.0) mg/dL 10/29/20 10/29/20 10/29/20 Range/Units 05:56 09:27 11:52 RBC (4.30-5.90) m/uL APTT (22.0-30.0) sec BUN (9-20) mg/dL Creatinine (0.66-1.25) mg/dL Glucose (74-99) mg/dL POC Glucose (mg/dL) 180 H 199 H 256 H (75-99) mg/dL Triglycerides (0.0-149.0) mg/dL HDL Cholesterol (40.0-60.0) mg/dL Assessment and Plan Plan: Assessment: #1. Acute exacerbation of systolic congestive heart failure, with moderate to severely impaired left ventricular systolic function and EF of 30-35% #2. History of coronary artery disease with previous coronary artery bypass grafting 4 in 2004, today's heart cath on 10/29/2020 showed no evidence of significant occlusive disease, and medical management was recommended #3. History of ischemic cardiomyopathy #4. Diabetes mellitus type 2 #5. Hypertension #6. Hyperlipidemia #7. Gout #8. Former smoker of 27 years of 2 packs per day #9. History of COPD on home oxygen usually wears 2 L of oxygen Plan: Continue current medical treatment Continue diuretics Patient is in negative fluid balance, breathing easier, Cardiac cath report has been noted Chest x-ray reviewed Continue breathing treatments Follow-up labs tomorrow Increase activity as tolerated We will reevaluate in another 24 hours May consider for discharge home when cleared by cardiology I performed a history & physical examination of the patient and discussed their management with my nurse practitioner, Kelly Galan. I reviewed the nurse practitioner's note and agree with the documented findings and plan of care. Lung sounds are positive for diminished breath sounds. The findings and the impression was discussed with the patient. I attest to the documentation by the nurse practitioner. Time with Patient: Less than 30
--- NOTE | 2020-10-29 16:42 | CDI ---
Documentation Clarification Form Date: 10/29/2020 04:22:25 PM From: Mercy Bush RN, CCDS Admit Date: 10/28/2020 01:11:00 AM Patient Name: Esteban Fernández Visit Number: [id number] Discharge Date: ATTENTION: The Clinical Documentation Specialists (CDI) and [facility] Coding Staff appreciate your assistance in clarifying documentation. Please respond to the clarification below the line at the bottom and electronically sign. The CDI & [facility] Coding staff will review the response and follow-up if needed. Please note: Queries are made part of the Legal Health Record. If you have any questions, please contact the author of this message via ITS. Dr. Tayo Jaquez Your patient has shortness of breath, he was transferred for CHF with hypoxia. Pulmonary consult and subsequent progress notes has home oxygen at 2/L m per nasal cannula for COPD. Based on this information and the findings below, is there an additional diagnosis that is clinically appropriate for this patient? History/Risk Factors: Hypertension, Diabetes mellitus, Coronary Bypass/CABG, Tobacco use: Former smoker Home oxygen: 2/L NC Clinical Indicators: 70-year-old male presented to [facility] for shortness of breath and dyspnea on exertion. He was found to be in congestive heart failure and transferred to [facility]. 10/28 Vital signs: 132/65 64 18 98.0 97 % 2/L NC 10/29 Vital signs: 97/61 59 18 91 % 2/L NC 10/28 Lung/Breathing assessment: Positive for shortness of breath Equal air entry with crackles in the posterior bases (per pulmonary assessment). Treatment: Albuterol/Duoneb 3ml Inhalation Q2 PRN Albuterol/Ipratroplum Duonebs 3 ml Inhalation QID Monitor O2 Sat's (Titrate O2) Lasix 40 mg IV Q12 (10/28-10/29) Change to 20 MG PO BID Is there an additional diagnosis that is clinically appropriate for this patient? [ ] Chronic hypoxic Respiratory Failure [ ] Other Diagnosis, please specify [ ] Unable to determine (Template Last Revised: June 2020) MTDD
[2020-10-29 16:57] LABS: Glucose,Whole Blood 301 mg/dL (75-99)
[2020-10-29 20:11] LABS: Glucose,Whole Blood 275 mg/dL (75-99)
[2020-10-29] MEDS: INSULIN DETEMIR (LEVEMIR) 100 UNIT/ML SYR SQ SCH (20:26)
[2020-10-29] MEDS: FUROSEMIDE 20 MG TAB PO SCH (20:27)
[2020-10-29] MEDS: ATORVASTATIN 40 MG TAB PO SCH (20:27)
[2020-10-30 03:38] VITALS: PULSE 65
--- NOTE | 2020-10-30 06:38 | PN ---
PROGRESS NOTE A 70-year-old white male who had a heart catheterization which showed no obstructive blocked arteries, but he did have ejection fraction low at 30-35%. Remains on DuoNeb updrafts. His home medications for systolic CHF have been started. He was on IV Lasix which has been switched to oral Lasix. He has lost 20-30 pounds since he has been admitted with fluid weight. He is breathing better sitting up. He has been weaned off oxygen. Cardiovascular S1-S2. Lungs rales at the bases. Hematology 2 to 3+ edema. ASSESSMENT: 1. Systolic ejection fraction coronary artery disease. 2. Hypertension. 3. Dyslipidemia. 4. Obesity. 5. Probable sleep apnea. Possibly cleared for discharge home tomorrow. Home medications were reviewed with the patient. Outpatient sleep apnea study will be done. JANES / ELENAN: [id number] /
[2020-10-30 07:15] LABS: Glucose,Whole Blood 121 mg/dL (75-99)
[2020-10-30] MEDS: INSULIN ASPART (NovoLOG) 100 UNIT/ML VIAL SQ SCH ×4 (07:21→12:39)
[2020-10-30] MEDS: carvediloL 12.5 MG TAB PO SCH (07:22)
[2020-10-30 08:16] LABS: Albumin 4.4 g/dL (3.5-5.0); Calcium 9.4 mg/dL (8.4-10.2); Total Bilirubin 0.6 mg/dL (0.2-1.3); Total Protein 7.3 g/dL (6.3-8.2)
[2020-10-30] MEDS: IPRATROPIUM-ALBUTEROL 3 ML NEB INHALATION SCH ×2 (08:27→11:55)
[2020-10-30] MEDS: FUROSEMIDE 20 MG TAB PO SCH (09:58)
[2020-10-30] MEDS: allopurinoL 100 MG TAB PO SCH (09:58)
[2020-10-30] MEDS: LINAGLIPTIN 5 MG TABLET PO SCH (09:58)
[2020-10-30] MEDS: lisinopriL 5 MG TAB PO SCH (09:58)
[2020-10-30] MEDS: FAMOTIDINE 20 MG TAB PO SCH (09:58)
[2020-10-30] MEDS: ASPIRIN 81 MG PO SCH (09:58)
[2020-10-30 10:04] VITALS: BP 143/73; RESP 18; TEMP 97.8
[2020-10-30 12:16] LABS: Glucose,Whole Blood 234 mg/dL (75-99)
[2020-10-30 12:39] LABS: Chol/HDL Ratio 3.97
--- NOTE | 2020-10-30 13:09 | P.PN ---
Subjective Progress Note Date: 10/30/20 Principal diagnosis: Dyspnea On 10/29/2020 patient seen in follow-up on selective care unit. He is resting comfortably in bed, in no acute distress, he is currently on 2 L oxygen pulse ox is 92-96%, no worsening dyspnea, she had cardiac catheterization today, and was found to have no evidence of significant coronary artery disease. His EF was 30-35%. Aggressive medical management was recommended per cardiology for history of ischemic cardiomyopathy. Remains on oral diuretics, his follow-up chest x-ray today shows no acute pulmonary process. No complaints of chest pain overnight. Today's labs have been noted. On 10/30/2020 patient seen in follow-up on selective care unit, he is currently on room air, he is awake and alert, oriented 3, room air pulse ox is 95%, vital signs are stable, breathing comfortably, lung sounds are clear, no complaints of chest pain, patient is status post heart catheterization yesterday which showed no evidence of significant coronary artery disease, his EF is 30-35%, his chest x-ray yesterday showed no acute pulmonary process, he has been diuresed, and he has been transitioned to oral Lasix, currently on 20 mg twice daily, bed in no acute events overnight, no complaints of chest pain. No coughing or wheezing, no dyspnea. He is anticipated to be discharged home today. Objective - Vital Signs Vital signs: Vital Signs Temp 97.8 F 10/30/20 10:00 Pulse 65 10/30/20 10:00 Resp 18 10/30/20 10:00 BP 143/73 10/30/20 10:00 Pulse Ox 95 10/30/20 10:00 Intake & Output 10/29/20 10/30/20 10/30/20 18:59 06:59 18:59 Intake Total 290 200 240 Output Total 1050 900 575 Balance -760 -700 -335 Weight 122.3 kg Intake: IV 50 Oral 240 200 240 Output: Urine 1050 900 575 Uretheral (Mera) 400 Other: Voiding Method Indwelling Catheter Urinal Urinal # Voids 1 - Exam GENERAL EXAM: Alert, very pleasant, 70-year-old white male, room air pulse ox of 95% comfortable in no apparent distress. HEAD: Normocephalic/atraumatic. EYES: Normal reaction of pupils, equal size. Conjunctiva pink, sclera white. NOSE: Clear with pink turbinates. THROAT: No erythema or exudates. NECK: No masses, no JVD, no thyroid enlargement, no adenopathy. CHEST: No chest wall deformity. Symmetrical expansion. LUNGS: Equal air entry with no crackles, wheeze, rhonchi or dullness. CVS: Regular rate and rhythm, normal S1 and S2, no gallops, no murmurs, no rubs ABDOMEN: Soft, nontender. No hepatosplenomegaly, normal bowel sounds, no guarding or rigidity. EXTREMITIES: No clubbing, no edema, no cyanosis, 2+ pulses and upper and lower extremities. MUSCULOSKELETAL: Muscle strength and tone normal. SPINE: No scoliosis or deformity SKIN: No rashes CENTRAL NERVOUS SYSTEM: Alert and oriented -3. No focal deficits, tone is normal in all 4 extremities. PSYCHIATRIC: Alert and oriented -3. Appropriate affect. Intact judgment and insight. - Labs CBC & Chem 7: 10/29/20 02:42 10/30/20 07:37 Labs: Abnormal Lab Results - Last 24 Hours (Table) 10/29/20 10/29/20 10/30/20 Range/Units 16:53 20:09 07:13 BUN (9-20) mg/dL Creatinine (0.66-1.25) mg/dL Glucose (74-99) mg/dL POC Glucose (mg/dL) 301 H 275 H 121 H (75-99) mg/dL Triglycerides (0.0-149.0) mg/dL VLDL Cholesterol, Calc (5.00-40.00) mg/dL HDL Cholesterol (40.0-60.0) mg/dL 10/30/20 10/30/20 10/30/20 Range/Units 07:37 07:37 12:10 BUN 36 H (9-20) mg/dL Creatinine 1.55 H (0.66-1.25) mg/dL Glucose 127 H (74-99) mg/dL POC Glucose (mg/dL) 234 H (75-99) mg/dL Triglycerides 205.0 H (0.0-149.0) mg/dL VLDL Cholesterol, Calc 41.00 H (5.00-40.00) mg/dL HDL Cholesterol 30.0 L (40.0-60.0) mg/dL Assessment and Plan Plan: Assessment: #1. Acute exacerbation of systolic congestive heart failure, with moderate to severely impaired left ventricular systolic function and EF of 30-35% #2. History of coronary artery disease with previous coronary artery bypass grafting 4 in 2004, today's heart cath on 10/29/2020 showed no evidence of significant occlusive disease, and medical management was recommended #3. History of ischemic cardiomyopathy #4. Diabetes mellitus type 2 #5. Hypertension #6. Hyperlipidemia #7. Gout #8. Former smoker of 27 years of 2 packs per day #9. History of COPD on home oxygen usually wears 2 L of oxygen Plan: Breathing is stable Yesterday chest x-ray showed no acute pulmonary process Patient has been diuresed He is on room air No acute events overnight no complaints of chest pain Clear for discharge from pulmonary perspective if cleared by cardiology I performed a history & physical examination of the patient and discussed their management with my nurse practitioner, Kelly Galan. I reviewed the nurse practitioner's note and agree with the documented findings and plan of care. Lung sounds are positive for diminished breath sounds. The findings and the impression was discussed with the patient. I attest to the documentation by the nurse practitioner. Time with Patient: Less than 30
[2020-10-30 14:31] LABS: Hemoglobin A1C 7.5 % (4.0-6.0)
[2020-10-31] MEDS ORDERED: metFORMIN 500 MG TAB PO SCH (17:30)
== END 2020-10-30 13:15 | disposition home or self-care (01) | DRG 287 ==
LOC: EC 21:54 → SUPCPDRO 21:54 → 3SCARD 10-28 01:11
PROVIDERS: ADMIT Family Medicine; ATTEND Family Medicine
PROC: 4A023N7 Measurement of Cardiac Sampling and Pressure, Left Heart, Percutaneous Approach (ICD-10-PCS; principal; 2020-10-29 07:30)
PROC: B2161ZZ Fluoroscopy of Right and Left Heart using Low Osmolar Contrast (ICD-10-PCS; 2020-10-29 07:30)
DX: I11.0 Hypertensive heart disease with heart failure (principal); J96.11 Chronic respiratory failure with hypoxia; I50.23 Acute on chronic systolic (congestive) heart failure; E66.01 Morbid (severe) obesity due to excess calories; E78.5 Hyperlipidemia, unspecified; F41.9 Anxiety disorder, unspecified; G47.30 Sleep apnea, unspecified; E11.9 Type 2 diabetes mellitus without complications; I25.10 Atherosclerotic heart disease of native coronary artery without angina pectoris; I25.5 Ischemic cardiomyopathy; I25.82 Chronic total occlusion of coronary artery; I27.20 Pulmonary hypertension, unspecified; M10.9 Gout, unspecified; K21.9 Gastro-esophageal reflux disease without esophagitis; J44.9 Chronic obstructive pulmonary disease, unspecified; R09.02 Hypoxemia; Z79.82 Long term (current) use of aspirin; Z79.84 Long term (current) use of oral hypoglycemic drugs; Z79.899 Other long term (current) drug therapy; Z82.3 Family history of stroke; Z87.891 Personal history of nicotine dependence; Z95.1 Presence of aortocoronary bypass graft; Z99.81 Dependence on supplemental oxygen
CPT/HCPCS: 71045; 71046; 76937; 80048; 80053; 80061; 83036; 84484; 85025; 85027; 85610; 85730; 93005; 93306; 93455; 94640; 94760; 99285